=== PATIENT | male | born 1950 | race Caucasian/White ===

== ENCOUNTER 2017-07-20 15:34 | Emergency (ER) | END 2017-07-20 19:27 | disposition home or self-care (01) ==

== ENCOUNTER 2017-08-01 16:53 | Emergency (ER) | END 2017-08-01 17:18 | disposition home or self-care (01) ==

== ENCOUNTER 2018-04-01 16:53 | Emergency (ER) | END 2018-04-02 | disposition short-term general hospital (02) ==